=== PATIENT | female | born 1995 | race Caucasian/White ===

== ENCOUNTER 2018-02-06 18:29 | Emergency (ER) | payer OTHER ==
[2018-02-06] MEDS ORDERED: IBUPROFEN 800 MG TABLET PO STA (18:48)
[2018-02-06] MEDS ORDERED: ONDANSETRON ODT 4 MG TABLET TL STA (18:48)
--- NOTE | 2018-02-06 18:49 | ED Physician Documentation ---
History of Present Illness - Stated complaint Stated Complaint: HEAD COLD THROWING UP - Chief complaint Chief Complaint: General - History obtained from History obtained from: Patient - History of Present Illness Timing: Other (She is been sick for about 5 days with cough, congestion, nasal congestion. She was getting better but became worse yesterday with abdominal cramps, myalgias, and nausea and vomiting. No fevers at this point, she did have fevers at the outset which are gone.) Review of Systems Constitutional: reports: Fatigue Ears: reports: Ear pain Nose: reports: Rhinorrhea / runny nose, Sinus pressure / pain Throat: denies: Sore throat Respiratory: reports: Cough. denies: Dyspnea GI: reports: Abdominal Pain, Nausea, Vomiting. denies: Diarrhea PD PAST MEDICAL HISTORY - Present Medications Home Medications: Ambulatory Orders Medication Instructions Recorded Confirmed Ondansetron Odt [Zofran] 4 mg TL Q6H PRN #10 tablet 02/06/18 Sertraline [Zoloft] 50 02/06/18 - Allergies Allergies/Adverse Reactions: Allergies Allergy/AdvReac Type Severity Reaction Status Date / Time tramadol Allergy Hives Verified 02/06/18 18:35 PD ED PE NORMAL - Vitals Vital signs reviewed: Yes - General General: Alert and oriented X 3, No acute distress - HEENT HEENT: PERRL, EOMI, Ears normal, Pharynx benign - Neck Neck: Supple, no meningeal sign, No bony TTP - Cardiac Cardiac: RRR, No murmur - Respiratory Respiratory: No respiratory distress, Clear bilaterally - Abdomen Abdomen: Normal bowel sounds, Soft, Non tender - Extremities Extremities: No edema - Neuro Neuro: Alert and oriented X 3, Normal speech - Psych Psych: Normal mood, Normal affect Results - Vitals Vitals: Vital Signs - 24 hr 02/06/18 18:31 Temperature 36.8 C Heart Rate 107 H Respiratory 16 Rate Blood Pressure 117/71 O2 Saturation 97 Oxygen O2 Source Room air - Labs Labs: Laboratory Tests 02/06/18 02/06/18 18:57 19:00 Urine Color YELLOW Urine Clarity CLEAR Urine pH 5.5 Ur Specific [place] >=1.030 H Urine Protein NEGATIVE Urine Glucose (UA) NEGATIVE Urine Ketones NEGATIVE Urine Occult Blood NEGATIVE Urine Nitrite NEGATIVE Urine Bilirubin NEGATIVE Urine Urobilinogen 0.2 (NORMAL) Ur Leukocyte Esterase NEGATIVE Ur Microscopic Review NOT INDICATED Urine Culture Comments NOT INDICATED Urine HCG, Qual NEGATIVE Influenza A (Rapid) Negative Influenza B (Rapid) Negative PD MEDICAL DECISION MAKING - ED course ED course: Some symptoms with nausea that was resolved after the administration of Zofran here. Departure - Departure Disposition: 01 Home, Self Care Clinical Impression: Viral syndrome Condition: Good Record reviewed to determine appropriate education?: Yes Instructions: ED Viral Syndrome Prescriptions: Ondansetron Odt [Zofran] 4 mg TL Q6H PRN #10 tablet PRN Reason: Nausea / Vomiting Comments: Call your doctor to arrange a follow-up appointment, make the next available appointment. In the interim, return anytime if worse or if new symptoms develop.
[2018-02-06 19:32] LABS: BILIRUBIN,URINE NEGATIVE (NEGATIVE); GLUCOSE, URINE (UA) NEGATIVE (NEGATIVE); KETONES,URINE (UA) NEGATIVE (NEGATIVE); LEUKOCYTE ESTERASE, URINE NEGATIVE (NEGATIVE); NITRITE,URINE NEGATIVE (NEGATIVE); OCCULT BLOOD,URINE NEGATIVE (NEGATIVE); PH,URINE 5.5 PH (5.0-7.5); PROTEIN,URINE NEGATIVE (NEGATIVE); UROBILINOGEN,URINE 0.2 (NORMAL) E.U./dL (NORMAL)
[2018-02-06 19:36] LABS: CLARITY,URINE CLEAR (CLEAR); HCG UR QUAL NEGATIVE
[2018-02-06] MEDS ORDERED: ONDANSETRON ODT 4 MG Prepack 2 TL STA (19:56)
[2018-02-06 20:21] VITALS: BP 113/97
== END 2018-02-06 20:10 | disposition home or self-care (01) ==
LOC: ED 18:29
DX: B34.9 Viral infection, unspecified (principal)
CPT/HCPCS: 81003; 81025; 87275; 87276; 99283; A9270; Q0162; 81001; 87086